=== PATIENT | female | born 2000 | race Caucasian/White ===

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

== ENCOUNTER 2018-08-05 09:11 | Emergency (ER) | payer OTHER ==
[~2018-08-05] VITALS: Ht 170.2 cm; Wt 54.4 kg
--- NOTE | 2018-08-05 09:32 | NUR ---
Patient discharged to home in stable conditon. Written and verbal after care instructions given. Patient verbalizes understanding of instructions.pt walks in steady gait, no sign of distress.
== END 2018-08-05 09:34 | disposition home or self-care (01) ==
LOC: ER 09:11
DX: G51.0 Bell's palsy (principal)
CPT/HCPCS: A4663

== ENCOUNTER 2019-02-21 21:23 | Emergency (ER) | payer OTHER ==
[~2019-02-21] VITALS: Ht 170.2 cm; Wt 51.7 kg
--- NOTE | 2019-02-21 21:47 | NUR ---
patient c/o of difficulty breathing when exercising. patient not having any difficuly at this time. normal breath sounds through out and o2 saturation 100% on room air.
--- NOTE | 2019-02-21 21:48 | NUR ---
Dr. Riojas at bedside
--- NOTE | 2019-02-21 21:54 | NUR ---
Patient discharged to home in stable conditon. Written and verbal after care instructions given. Patient verbalizes understanding of instructions. patient self ambulatory with steady gait. exit care package and personal belongings taken home with patient at discharge. patient VSS. patient denies any respiratory distress at this time.
[2019-02-21 21:56] VITALS: BP 122/71
== END 2019-02-21 21:56 | disposition home or self-care (01) ==
LOC: ER 21:23
DX: J45.990 Exercise induced bronchospasm (principal)
CPT/HCPCS: A4663